=== PATIENT | female | born 1995 | race Caucasian/White ===

== ENCOUNTER 2019-09-12 18:11 | Emergency (ER) | payer SELFPAY ==
[2019-09-12 19:27] LABS: Influenza A Molecular POSITIVE (Negative)
--- NOTE | 2019-09-12 19:48 | UC ---
FLU HPI - HPI Summary HPI Summary: 24-year-old female with flulike symptoms over the past 3 days. - History of Current Complaint Chief Complaint: UCGeneralIllness Stated Complaint: FLU SYMPTOMS Time Seen by Provider: 09/12/19 19:06 Hx Obtained From: Patient Hx Last Menstrual Period: no period ?: No Onset/Duration: Sudden Onset, Lasting Days Severity Currently: Moderate Severity Initially: Moderate Pain Intensity: 5 Associated Signs & Symptoms: Positive: Fever, Myalgia, Cough, Sore Throat - Scratchy throat, Nasal Congestion, Headache, Vomiting - Patient vomited one time. - Allergy/Home Medications Allergies/Adverse Reactions: Allergies Allergy/AdvReac Type Severity Reaction Status Date / Time No Known Allergies Allergy Verified 09/12/19 18:42 Home Medications: Home Medications Aspirin/Acetaminophen/Caffeine [Excedrin Extra Strength Caplet] 1 each PO ONCE 09/12/19 [History Confirmed 09/12/19] Oseltamivir CAP* [Tamiflu CAP*] 75 mg PO BID 5 Days #10 cap 09/12/19 [Rx] PMH/Surg Hx/FS Hx/Imm Hx Previously Healthy: Yes - Surgical History Surgical History: Yes Surgery Procedure, Year, and Place: appendectomy - Family History Known Family History: Positive: Unknown - Social History Occupation: Unemployed Lives: With Family Alcohol Use: None Substance Use Type: None Smoking Status (MU): Light Every Day Tobacco Smoker Amount Used/How Often: 1 PP -3days Review of Systems All Other Systems Reviewed And Are Negative: Yes Constitutional: Positive: Fever, Chills ENT: Positive: Sore Throat - Scratchy throat, Nasal Discharge Respiratory: Positive: Cough - Nonproductive dry cough Gastrointestinal: Positive: Vomiting - Patient vomited once yesterday Musculoskeletal: Positive: Myalgia Neurological/Mental Status: Positive: Headache Is Patient Immunocompromised?: No Physical Exam Triage Information Reviewed: Yes Appearance: Well-Appearing, No Pain Distress, Well-Nourished Vital Signs: Initial Vital Signs Temp 100.3 F 09/12/19 18:44 Pulse 104 09/12/19 18:44 Resp 18 09/12/19 18:44 BP 125/75 09/12/19 18:44 Pulse Ox 100 09/12/19 18:44 Vital Signs Reviewed: Yes Eyes: Positive: Conjunctiva Clear ENT: Positive: Pharynx normal, TMs normal, Uvula midline Neck: Positive: Supple, Nontender, No Lymphadenopathy Respiratory: Positive: Lungs clear, Normal breath sounds, No respiratory distress, No accessory muscle use Cardiovascular: Positive: No Murmur, Pulses Normal, Brisk Capillary Refill, Tachycardia Abdomen Description: Positive: Nontender, No Organomegaly, Soft. Negative: CVA Tenderness (R), CVA Tenderness (L), Distended, Guarding, Hepatomegaly, Splenomegaly Bowel Sounds: Positive: Present Musculoskeletal Exam: Normal Neurological Exam: Normal Psychological Exam: Normal Skin Exam: Normal Flu Course/Dx - Course Course Of Treatment: Rapid flu test: Positive for type A Patient is comfortable here. She did opt to start the Tamiflu. She is to increase fluids and rest as much as possible. She does not appear ill and is nontoxic. - Differential Dx/Diagnosis Provider Diagnosis: Influenza A Discharge ED - Sign-Out/Discharge Documenting (check all that apply): Patient Departure All imaging exams completed and their final reports reviewed: No Studies - Discharge Plan Condition: Fair Disposition: HOME Prescriptions: Oseltamivir CAP* [Tamiflu CAP*] 75 mg PO BID 5 Days #10 cap Patient Education Materials: Influenza (DC) Referrals: No Primary Care Phys,NOPCP [Primary Care Provider] - [facility] [Outside] Additional Instructions: Increase fluids, rest, [id number] cold medicines as directed. Follow up with your primary care provider if no improvement in 3 or 4 days. - Billing Disposition and Condition Condition: FAIR Disposition: Home
== END 2019-09-12 20:01 | disposition home or self-care (01) ==
LOC: UCEAST 18:11
DX: J10.1 Influenza due to other identified influenza virus with other respiratory manifestations (principal); F17.210 Nicotine dependence, cigarettes, uncomplicated; Z79.82 Long term (current) use of aspirin
CPT/HCPCS: 99202; G0463

== ENCOUNTER 2023-08-30 10:07 | Inpatient (IN) ==
[2023-08-30] MEDS ORDERED: Lidocaine 1% VIAL 10 MG/ML 30 ML VIAL INJ PRN (10:48)
[2023-08-30] MEDS: Lactated Ringers 1000 ml BAG 1,000 ML IV ONE ×2 (10:50→11:22)
[2023-08-30] MEDS: Magnesium Sulfate OB PREMIX 40 GM/1,000 ML BAG ONE (10:52)
[2023-08-30] MEDS: Indomethacin 50 mg SUPP (NF) PR ONE (11:00)
[2023-08-30] MEDS: Penicillin G Potassium IV 5,000,000 UNITS in NS 0.9% 100 ml BAG 100 ML IVPB ONE (11:00)
[2023-08-30] MEDS: Betamethasone 6 mg/ml 5 ml VIAL IM SCH (11:04)
[2023-08-30 11:16] LABS: ABS Basophils 0.1 10^3/uL (0.0-0.1); ABS Eosinophils 0.3 10^3/uL (0.0-0.5); ABS Lymphocytes 1.7 10^3/uL (1.0-4.8); ABS Monocytes 1.1 10^3/uL (0.0-0.9); ABS Neutrophils 14.3 10^3/uL (1.5-7.6); ABS Nucleated RBC 0.01 10^3/ul; Eosinophil % 1.5 %; Hematocrit 35.9 % (35-45); Hemoglobin 12.3 g/dL (11.5-14.3); Lymphocyte % 9.7 %; Mean Corpuscular Hemoglobin 30.8 pg (27-33); Mean Corpuscular Hgb Conc 34.3 g/dL (31-36); Mean Corpuscular Volume 89.8 fL (80-97); Mean Platelet Volume 7.5 fL (7.5-11.2); Nucleated Red Blood Cells % 0.1 %/100WBC (0.0-0.8); Platelet Count 247 10^3/uL (150-450); Red Blood Count 3.99 10^6/uL (3.63-4.92); Red Cell Distribution Width 12.6 % (12-17); White Blood Count 17.5 10^3/uL (3.8-11.8)
[2023-08-30] MEDS: Buffered Lidocaine 1% SYRIN 1 ml INTRADERM ONE ×2 (11:16)
[2023-08-30] MEDS: Lactated Ringers 1000 ml BAG 1,000 ML IV SCH ×2 (11:21→11:23)
[2023-08-30 11:22] LABS: Urine Appearance Turbid; Urine Bilirubin Negative (Negative); Urine Blood 1+ (Negative); Urine Color Colorless; Urine Glucose Negative (Negative); Urine Ketones Negative (Negative); Urine Nitrite Negative (Negative); Urine Protein Trace (Negative); Urine Specific Gravity 1.006 (1.002-1.030); Urine Urobilinogen Negative (Negative); Urine pH 6.5 (5.0-8.0)
[2023-08-30] MEDS: Penicillin G Potassium IV 3,000,000 UNITS in NS 0.9% 100 ml BAG 100 ML IVPB SCH (11:25)
[2023-08-30 11:35] LABS: Urine Benzodiazepine Screen None Detected (None Detect); Urine Cannabinoids Screen None Detected (None Detect); Urine Opiates Screen None Detected (None Detect)
[2023-08-30 11:51] LABS: Urine Bacteria Absent /HPF (Absent); Urine Red Blood Cell 3+(>10/hpf) /HPF (0-Trace); Urine Squamous Epithelial Cell Present /HPF (Absent); Urine White Blood Cell 3+(>20/hpf) /HPF (0-Trace)
[2023-08-30] MEDS: Oxytocin in LR 20,000 MILLI.UNIT/1,000 ML BAG IV SCH (13:20)
[2023-08-30] MEDS: Methylergonovine 0.2 mg AMPULE 1 ml AMP IM ONE (13:29)
[2023-08-30] MEDS ORDERED: Glycerin ADULT 2.4 gm SUPP PR PRN (13:35)
[2023-08-30] MEDS ORDERED: Lactated Ringers 1000 ml BAG 1,000 ML IV SCH (14:00)
[2023-08-30] MEDS: Methylergonovine 0.2 mg AMPULE 1 ml AMP ONE (14:02)
[2023-08-30] MEDS: Oxytocin in LR 20,000 MILLI.UNIT/1,000 ML BAG IV ONE (14:02)
[2023-08-30] MEDS ORDERED: Penicillin G Potassium IV 3,000,000 UNITS in NS 0.9% 100 ml BAG 100 ML IVPB SCH (15:00)
[2023-08-31 06:43] LABS: ABS Lymphocytes 2.2 10^3/uL (1.0-4.8); ABS Neutrophils 18.3 10^3/uL (1.5-7.6); ABS Nucleated RBC 0.02 10^3/ul; Hematocrit 29.6 % (35-45); Hemoglobin 10.1 g/dL (11.5-14.3); Lymphocyte % 10.2 %; Mean Corpuscular Hemoglobin 30.5 pg (27-33); Mean Corpuscular Hgb Conc 34.1 g/dL (31-36); Mean Corpuscular Volume 89.5 fL (80-97); Mean Platelet Volume 7.2 fL (7.5-11.2); Nucleated Red Blood Cells % 0.1 %/100WBC (0.0-0.8); Platelet Count 249 10^3/uL (150-450); Red Blood Count 3.31 10^6/uL (3.63-4.92); Red Cell Distribution Width 12.6 % (12-17); White Blood Count 21.5 10^3/uL (3.8-11.8)
[2023-08-31] MEDS: Dibucaine 1% OINT 28.35 GM TUBE PR PRN (09:09)
[2023-08-31] MEDS: Witch Hazel PAD JAR TOPICAL PRN (09:09)
[2023-08-31 12:43] VITALS: BP 117/64
== END 2023-08-31 13:45 | disposition home or self-care (01) | DRG 560 ==
LOC: MCHOBOUT 10:07 → MCHOB 10:49
PROVIDERS: ADMIT Obstetrics & Gynecology; ATTEND Obstetrics & Gynecology